=== PATIENT | male | born 1965 | race Caucasian/White ===

== ENCOUNTER 2023-12-10 18:17 | Emergency (ER) | payer BC, OTHER ==
[~2023-12-10] VITALS: Ht 182.9 cm; Wt 97.5 kg
[~2023-12-10 18:17] MED LIST: ATORVASTATIN CA40 MG PO; CINNAMON; FISH OIL; METOPROLOL TART25 MG PO; NITROSTAT0.4 MG SL
[2023-12-10 18:28] VITALS: TEMP 98.2
[2023-12-10 18:47] LABS: BASOPHILS # (AUTO) 0.1 (0.0-0.1); BASOPHILS % 0.5 % (0.0-1.0); EOSINOPHILS # (AUTO) 0.1 (0.0-0.4); EOSINOPHILS % 0.9 % (0.0-6.0); HEMATOCRIT 47.1 % (38.2-49.6); HEMOGLOBIN 15.5 g/dL (14.0-18.0); LYMPHOCYTES # (AUTO) 4.7 (1.0-3.2); MEAN CORPUSCULAR HEMOGLOBIN 30.3 pg (28-32); MEAN CORPUSCULAR HGB CONC 32.9 g/dL (31-35); MEAN CORPUSCULAR VOLUME 92.2 fL (81-99); MONOCYTES # (AUTO) 0.5 (0.2-0.8); MONOCYTES % 5.4 % (4.4-11.3); NEUTROPHILS # (AUTO) 4.4 (2.1-6.9); NEUTROPHILS % 44.9 % (38.7-80.0); PLATELET COUNT 259 x10e3/uL (140-360); RED BLOOD COUNT 5.11 x10e6/uL (4.3-5.7); RED CELL DISTRIBUTION WIDTH 12.4 % (11.7-14.4); WHITE BLOOD COUNT 9.74 x10e3/uL (4.8-10.8)
[2023-12-10] MEDS: KETOROLAC TROMETHAMINE 30 MG/ML VIAL IV ONE (18:52)
[2023-12-10 19:35] LABS: CREATINE KINASE 222 IU/L (30-200)
[2023-12-10 19:37] LABS: ALBUMIN 4.4 g/dL (3.5-5.0); ALBUMIN/GLOBULIN RATIO 1.3 (0.8-2.0); ANION GAP 16.7 mmol/L (8-16); BILIRUBIN,TOTAL 0.5 mg/dL (0.2-1.2); CALCIUM 10.4 mg/dL (8.4-10.2); CREATININE, SERUM 1.5 mg/dL (0.72-1.25); POTASSIUM 3.7 mmol/L (3.5-5.1); TOTAL PROTEIN 7.8 g/dL (6.5-8.1)
[2023-12-10 19:41] LABS: TROPONIN I < 0.001 ng/mL (0-0.300)
[2023-12-10 20:47] LABS: BILIRUBIN,URINE NEGATIVE (NEGATIVE); CLARITY,URINE SL CLOUDY (CLEAR); COLOR,URINE YELLOW (YELLOW); GLUCOSE, URINE NEGATIVE (NEGATIVE); KETONES,URINE NEGATIVE (NEGATIVE); LEUKOCYTE ESTERASE ,URINE NEGATIVE (NEGATIVE); NITRITE,URINE NEGATIVE (NEGATIVE); PH,URINE 6 (5 - 7); PROTEIN,URINE DIPSTICK NEGATIVE (NEGATIVE); URINE UROBILINOGEN 0.2 mg/dL (0.2 - 1)
[2023-12-10 20:58] LABS: RBC,URINE 0-5 /HPF (0-5)
[2023-12-10 20:59] LABS: BACTERIA,URINE FEW /HPF
[2023-12-10] MEDS ORDERED: ONDANSETRON ODT4 MG SL (22:10)
[2023-12-10] MEDS ORDERED: ULTRAM 50MG50 MG PO (22:10)
[2023-12-10 22:30] VITALS: PULSE 52; RESP 16; O2SAT 99
== END 2023-12-10 22:33 | disposition home or self-care (01) ==
LOC: ER 18:35
DX: R10.30 Lower abdominal pain, unspecified (principal); N20.0 Calculus of kidney; K42.9 Umbilical hernia without obstruction or gangrene; K40.20 Bilateral inguinal hernia, without obstruction or gangrene, not specified as recurrent; E78.5 Hyperlipidemia, unspecified; G47.30 Sleep apnea, unspecified; F41.9 Anxiety disorder, unspecified; I34.1 Nonrheumatic mitral (valve) prolapse
CPT/HCPCS: 36415; 71045; 74176; 80053; 81001; 82550; 84484; 85025; 93005; 99284; J1885

== ENCOUNTER 2024-12-26 10:46 | Emergency (ER) | payer OTHER ==
[~2024-12-26] VITALS: Ht 182.9 cm; Wt 108.0 kg
[~2024-12-26 10:46] MED LIST changes: +ONDANSETRON ODT4 MG SL; +ULTRAM 50MG50 MG PO
[2024-12-26 10:54] VITALS: TEMP 97.7
[2024-12-26] MEDS: ONDANSETRON HCL INJ 2MG/ML 2ML 2 MG/ML VIAL IV STA (11:07)
[2024-12-26] MEDS: SODIUM CHLORIDE 0.9% 1000ML 1,000 ML IV STA (11:07)
[2024-12-26] MEDS: KETOROLAC TROMETHAMINE 30 MG/ML VIAL IV STA (11:07)
[2024-12-26] MEDS: Morphine 4mg INJECTION 4 MG/ML INJ IV STA (11:07)
[2024-12-26 11:08] LABS: BASOPHILS % 0.3 % (0.0-1.0); EOSINOPHILS % 0.1 % (0.0-6.0); LYMPHOCYTES % 12.4 % (18.0-39.1); MONOCYTES % 7.1 % (4.4-11.3); NEUTROPHILS % 79.9 % (38.7-80.0); RED CELL DISTRIBUTION WIDTH 12.5 % (11.7-14.4)
[2024-12-26] MEDS ORDERED: BENICAR5 MG PO (11:13)
[2024-12-26] MEDS ORDERED: COSENTYX (150 MG/1 M IM (11:14)
[2024-12-26 11:26] LABS: INR 1.05
[2024-12-26 11:35] LABS: EST GLOMERULAR FILTRATION RATE 39.0 ML/MIN (>=60)
[2024-12-26 11:39] LABS: EPITHELIAL CELLS,URINE FEW /LPF; LEUKOCYTE ESTERASE ,URINE NEGATIVE (NEGATIVE); PROTEIN,URINE DIPSTICK NEGATIVE (NEGATIVE); URINE UROBILINOGEN 0.2 mg/dL (0.2 - 1); WBC,URINE (MAN) 0-5 /HPF (0-5)
[2024-12-26] MEDS ORDERED: FLOMAX0.4 MG PO (12:51)
[2024-12-26] MEDS ORDERED: HYDROCODON-ACE1 EA11 PO (12:51)
[2024-12-26] MEDS ORDERED: ONDANSETRON ODT4 MG PO (12:51)
[2024-12-26 13:09] VITALS: PULSE 58; RESP 18; O2SAT 99
== END 2024-12-26 13:09 | disposition home or self-care (01) ==
LOC: ER 10:51
DX: R10.32 Left lower quadrant pain (principal); N28.9 Disorder of kidney and ureter, unspecified; N13.2 Hydronephrosis with renal and ureteral calculous obstruction; R91.8 Other nonspecific abnormal finding of lung field; R16.1 Splenomegaly, not elsewhere classified
CPT/HCPCS: 36415; 74176; 80053; 81001; 83735; 85025; 85610; 85730; 99284; J1885; J2270; J2405; J7030